=== PATIENT | female | born 2000 | race Caucasian/White ===

== ENCOUNTER 2019-10-25 10:00 | Emergency (ER) | payer BC, OTHER | END 2019-10-25 10:20 | disposition home or self-care (01) | LOC: ERS 10:00 | DX: O99.89 Other specified diseases and conditions complicating pregnancy, childbirth and the puerperium (principal); R05 Cough; O21.9 Vomiting of pregnancy, unspecified; O99.341 Other mental disorders complicating pregnancy, first trimester; F41.9 Anxiety disorder, unspecified; F32.9 Major depressive disorder, single episode, unspecified; Z87.891 Personal history of nicotine dependence; Z3A.13 13 weeks gestation of pregnancy | CPT/HCPCS: 99283 ==